=== PATIENT | female | born 1955 | race Caucasian/White ===

== ENCOUNTER → 2022-04-19 | Outpatient (CLI) | payer MEDICARE, OTHER ==
--- NOTE | 2022-04-22 12:46 | HM ---
HOLTER MONITOR REPORT 24-hour Holter report. The patient in her diary did not have any significant symptoms. Predominant rhythm is sinus with a heart rate ranging from 44 to 97 beats per minute with average heart rate of 73 beats per minute. There was evidence of some isolated PVCs and PACs. The PVC burden was about 2.5% to 2.6%. There was no evidence of any ventricular tachycardia. There was evidence of isolated PACs and 1 run of PAT of about 9 beats that occurred without any associated symptoms in the diary. No significant bradyarrhythmia was noted. IMPRESSION: Predominant rhythm is sinus with isolated premature atrial contractions and premature ventricular contractions and 1 short run of paroxysmal atrial tachycardia. PVC burden was about 2.6%. MMODL / IJN: [id number] /
== END | disposition home or self-care (01) ==
LOC: RADECHMAIN 07:55
PROVIDERS: ATTEND Family Medicine
DX: I49.3 Ventricular premature depolarization (principal); I49.1 Atrial premature depolarization; I47.1 Supraventricular tachycardia; I49.9 Cardiac arrhythmia, unspecified
CPT/HCPCS: 93225; 93226